=== PATIENT | female | born 1930 | race Caucasian/White ===

== ENCOUNTER → 2018-09-22 06:00 | Outpatient (CLI) | payer OTHER ==
[~2018-09-22 06:00] MED LIST: ALLERGY RELIEF10 M3 PO; AMARY PO; EVISTA60 MG PO; HYDROCHLOROTHIA25 MG PO; METFORMIN HCL850 MG PO; METHYLDOPA250 MG PO; MULTI VITAMIN1 EACH PO; PANADOL EXTRA500 MG PO; SIMVASTATIN40 MG PO
== END | disposition home or self-care (01) ==
LOC: LAB 06:00 → CIR.AMB 09-24 06:56 → EDSTATUS 09-24 08:30 → CIR.AMB 09-24 08:30
DX: N87.1 Moderate cervical dysplasia (principal); Z01.810 Encounter for preprocedural cardiovascular examination; Z01.812 Encounter for preprocedural laboratory examination